=== PATIENT | male | born 2000 | race Caucasian/White ===

== ENCOUNTER 2020-09-03 08:10 | Emergency (ER) | payer OTHER ==
[~2020-09-03] VITALS: Ht 182.9 cm; Wt 65.9 kg
[2020-09-03 08:21] VITALS: TEMP 97.7
[2020-09-03 09:08] LABS: BASO % 0.6 % (0.0-2.0); EOS # 0.2 (0.0-0.7); EOS % 3.5 % (0-4.0); GRAN # 2.1 (1.4-6.5); GRAN % 43.3 % (42.2-75.2); HEMATOCRIT 45.4 % (36.0-47.0); HEMOGLOBIN 15.4 g/dl (12.5-16.1); LYMPH # 2.2 (1.2-3.4); LYMPH % 45.7 % (20.0-51.0); MEAN CELL VOLUME 88 fl (80.0-95.0); MEAN CORPUSCULAR HEMOGLOBIN 30 pg (26.0-32.0); MEAN CORPUSCULAR HGB CONC 34 g/dl (33.0-37.0); MEAN PLATELET VOLUME 10.2 fl (7.4-10.4); MONO # 0.3 (0.1-0.6); MONO % 6.7 % (1.7-9.3); PLATELET COUNT 272 K/mm3 (130-400); RED BLOOD COUNT 5.15 M/mm3 (4.20-5.60); REDCELL DISTRIBUTION WIDTH-CV 12.2 % (11.5-14.5)
[2020-09-03 09:21] LABS: ALANINE AMINOTRANSFERASE 15 U/L (4-49); ALBUMIN 4.7 gm/dL (3.5-5.0); ALKALINE PHOSPHATASE 66 U/L (50-136); ANION GAP 9 mmol/L (7-16); AST,SGOT 27 U/L (15-37); BILIRUBIN,TOTAL 0.4 mg/dL (0.0-1.0); BLOOD UREA NITROGEN 8 mg/dL (9-20); CALCIUM 9.2 mg/dL (8.4-10.2); CARBON DIOXIDE 27 mmol/L (22-30); CHLORIDE 107 mmol/L (98-107); CREATININE, serum 0.81 (0.66-1.25); GLUCOSE 90 mg/dL (74-106); POTASSIUM 4.2 mmol/L (3.4-5.0); SODIUM 143 mmol/L (137-145); TOTAL PROTEIN 7.8 gm/dL (6.4-8.2)
[2020-09-03 09:26] LABS: C-REACTIVE PROTEIN < 0.5 mg/dL (0.0-0.9)
[2020-09-03 09:35] LABS: TROPONIN-I < 0.012 ng/mL (0.000-0.035)
[2020-09-03 09:45] LABS: D-DIMER < 200.00 ng/mLDDu (200-230)
[2020-09-03 10:13] LABS: COLLECTION METHOD CLEAN CATCH
[2020-09-03 10:31] LABS: MUCOUS Present /lpf; PH 7 (5-8); SQUAMOUS EPITHELIAL None Seen /hpf; URINE APPEARANCE Clear; URINE BACTERIA None Seen /hpf; URINE BILIRUBIN Negative (NEGATIVE); URINE BLOOD Negative (NEGATIVE); URINE COLOR Yellow; URINE GLUCOSE Negative (NEGATIVE); URINE KETONE Negative (NEGATIVE); URINE LEUKOCYTE ESTERASE Negative (NEGATIVE); URINE NITRATE Negative (NEGATIVE); URINE PROTEIN(semi-quant) Negative (NEGATIVE); URINE RBC 0-2 /hpf; URINE UROBILINOGEN Negative (NEGATIVE)
[2020-09-03 10:49] VITALS: BP 121/83; PULSE 86
== END 2020-09-03 10:50 | disposition home or self-care (01) ==
LOC: COL.ER 08:10
PROVIDERS: Emergency Medicine
DX: R55 Syncope and collapse (principal); Z20.828 Contact with and (suspected) exposure to other viral communicable diseases